=== PATIENT | female | born 1965 | race Caucasian/White ===

== ENCOUNTER 2021-09-22 11:10 | Emergency (ER) | payer BC ==
[~2021-09-22] VITALS: Ht 175.3 cm; Wt 93.0 kg
[2021-09-22 12:07] VITALS: BP_SYST 136
--- NOTE | 2021-09-22 12:52 | NUR ---
Patient to ER bed Hallway 2 to gown for evaluation. Side rails up.
--- NOTE | 2021-09-22 12:53 | NUR ---
Pt came into ER with C/O left arm pain since 09/01/21 after 1st pfizer imunization 06/24. Pt reports she was advised by Dr. Steward from [facility] to come in and be seen. Pt denies loss of sensation denies chest pain denies SOB. Pt has ful ROM of extremity cap refill less than 2 seconds radial pulse 2+. Pt is AAOX4 speaking full sentences. VSS no distress noted at this time. Pt is non febrile.
--- NOTE | 2021-09-22 13:33 | NUR ---
ER at bedside examining patient.
--- NOTE | 2021-09-22 13:54 | NUR ---
Lab at bedside.
[2021-09-22 14:14] LABS: BASOPHILS # (AUTO) 0.1 K/uL (0.0-0.2); BASOPHILS % (AUTO) 1.5 % (0.0-2.0); EOSINOPHILS # (AUTO) 0.1 K/uL (0.0-0.4); EOSINOPHILS % (AUTO) 2.3 % (0.0-4.0); HEMATOCRIT 41.3 % (36-48); HEMOGLOBIN 14.1 g/dL (12.0-16.0); LYMPHOCYTES # (AUTO) 2.3 K/uL (1.0-5.5); LYMPHOCYTES % (AUTO) 35.9 % (20.5-51.5); MEAN CORPUSCULAR HEMOGLOBIN 32 pg (27-31); MEAN CORPUSCULAR HGB CONC 34 % (32-36); MEAN CORPUSCULAR VOLUME 93 fL (79.0-98.0); MONOCYTES # (AUTO) 0.5 K/uL (0.0-1.0); MONOCYTES % (AUTO) 7.7 % (1.7-9.3); NEUTROPHILS # (AUTO) 3.4 K/uL (1.8-7.7); NEUTROPHILS % (AUTO) 52.6 % (40.0-70.0); PLATELET COUNT (AUTO) 351 K/uL (130-430); RED BLOOD CELL COUNT(AUTO) 4.47 MIL/uL (4.2-6.2); RED CELL DISTRIBUTION WIDTH 13.5 % (9.0-15.0); WHITE BLOOD COUNT (AUTO) 6.5 K/uL (4.8-10.8)
[2021-09-22 14:57] LABS: ERYTHROCYTE SEDIMENTATION RATE 7 MM/HR (0-20)
[2021-09-22 15:12] LABS: C-REACTIVE PROTEIN QUANT < 0.2 mg/dL (0-0.5)
--- NOTE | 2021-09-22 16:05 | NUR ---
ER at bedside examining patient.
--- NOTE | 2021-09-22 17:16 | NUR ---
Patient transported to radiology via ambulatory, accompanied by tech.
--- NOTE | 2021-09-22 17:36 | NUR ---
Pt back from ultrasound.
[2021-09-22 17:41] VITALS: BP_SYST 132
--- NOTE | 2021-09-22 17:41 | NUR ---
Patient given written and verbal discharge instructions and verbalizes understanding. ER MD discussed with patient the results and treatment provided. Patient in stable condition. ID arm band removed. Patient educated on pain management and to follow up with PMD. Pain Scale 0/10. Opportunity for questions provided and answered. Medication side effect fact sheet provided.
== END 2021-09-22 17:41 | disposition home or self-care (01) ==
LOC: SED 11:10
DX: M79.602 Pain in left arm (principal)
CPT/HCPCS: 36415; 82550; 85025; 85651-TC; 86140; 93971; 99284